=== PATIENT | female | born 1980 | race Caucasian/White ===

== ENCOUNTER 2017-03-02 17:08 | Emergency (ER) | payer SELFPAY ==
[~2017-03-02] VITALS: Ht 162.6 cm; Wt 59.1 kg
[2017-03-02 17:12] VITALS: BP 114/88; PULSE 91; TEMP 99.4
[2017-03-02] MEDS ORDERED: NORCO 325 MG-51 TAB PO (17:52)
== END 2017-03-02 18:05 | disposition home or self-care (01) ==
LOC: COL.ER 17:08
DX: K62.89 Other specified diseases of anus and rectum (principal); K64.5 Perianal venous thrombosis